=== PATIENT | female | born 1960 | race Caucasian/White ===

== ENCOUNTER 2020-03-23 19:08 | Emergency (ER) | payer OTHER, SELFPAY ==
[2020-03-23] VITALS (8 sets, daily range): BP systolic 143–187; BP diastolic 84–116; PULSE 74–120; RESP 14–18; TEMP 36.6; O2SAT 96–99; BMI 24.0
[2020-03-23 19:49] LABS: Basophils % 0.2 %; Eosinophils % 0.1 %; Hematocrit 40.3 % (37.0-47.0); Hemoglobin 13.4 g/dL (11.5-15.3); Lymphocytes # 1.9 10^3/uL (0.8-4.8); Lymphocytes % 11.2 %; Mean Corpuscular HGB Conc 33.3 g/dL (30.0-36.0); Mean Corpuscular Hemoglobin 36.2 pg (28.0-34.0); Mean Corpuscular Volume 108.9 fL (81-99); Mean Platelet Volume 9.3 fL (7.4-10.4); Monocytes # 0.9 10^3/uL (0.2-0.9); Monocytes % 5.4 %; Neutrophils # 13.7 10^3/uL (1.8-7.7); Neutrophils % 82.6 %; Nucleated Red Blood Cells % 0 %; Platelet Count 362 10^3/cmm (130-400); Red Cell Distribution Width 12.9 % (12.1-15.1); White Blood Count 16.5 10^3/uL (4.0-10.0)
[2020-03-23 20:06] LABS: Alanine Aminotransferase 24 U/L (0-33); Albumin Level 4.5 g/dL (3.5-5.2); Alkaline Phosphatase 45 IU/L (35-105); Anion Gap 24.9 (5-19); Aspartate Amino Transferase 42 U/L (0-32); Blood Urea Nitrogen 27 mg/dL (6-20); Carbon Dioxide 17 mmol/L (22-29); Chloride 102 mmol/L (98-107); Globulin 3.5 g/dL (1.3-4.6); Glomerular Filtration Rate 33.1 mL/min (90-130); Glucose 269 mg/dL (65-115); Osmolality Calculated 296 mOsm/kg (285-295); Potassium 3.9 mmol/L (3.5-5.1); Sodium 140 mmol/L (136-145); Total Bilirubin 0.5 mg/dL (0.15-1.2)
[2020-03-23 20:07] LABS: HCG, Serum Qual Negative (Negative)
[2020-03-23] MEDS: ondansetron 2 mg/ML SDV 2 mL 4 MG IVP ×2 (20:10→20:57)
[2020-03-23] MEDS: sodium chloride 0.9% 1,000 ML 999 ML IV ×3 (20:11→22:19)
[2020-03-23 20:22] LABS: Calcium 13.9 mg/dL (8.5-10.5)
--- NOTE | 2020-03-23 20:23 | PC.NURSE ---
Lab called with critical CA+ value of 13.9, notified.
--- NOTE | 2020-03-23 20:45 | XR_ITS ---
WS: [id number] XR chest 1V portable [id number] REASON FOR EXAM: cough FINDINGS: The heart and mediastinal interfaces normal. The lung diggs are well aerated. No pneumonia, pleural effusion, pulmonary edema, or pneumothorax. The hilum and apices normal. No osseous abnormalities. XR/XR chest 1V portable [id number] IMPRESSION: Negative chest for acute pathology.
--- NOTE | 2020-03-23 20:45 | CTR_ITS ---
PROCEDURE INFORMATION: Exam: CT Abdomen And Pelvis With Contrast Exam date and time: 03/23/2020 8:51 PM Age: 60 years old Clinical indication: Abdominal pain; Generalized; Prior surgery; Surgery date: 6+ months; Surgery type: ; Patient HX: Umbilical and luq pain new onset today; N/v/d TECHNIQUE: Imaging protocol: Computed tomography of the abdomen and pelvis with intravenous contrast. Radiation optimization: All CT scans at this facility use at least one of these dose optimization techniques: automated exposure control; mA and/or kV adjustment per patient size (includes targeted exams where dose is matched to clinical indication); or iterative reconstruction. Contrast material: VISIPAQUE; Contrast volume: 95 ml; Contrast route: IV; COMPARISON: No relevant prior studies available. RADIATION DOSE METRICS: Total DLP: 541.59 mGy-cm FINDINGS: Heart: Mild cardiac enlargement. Lungs: subsegmental atelectasis in the lung bases. Liver: There is diffuse low-attenuation of the liver relative to the spleen consistent with fatty infiltration. Gallbladder and bile ducts: The gallbladder is markedly edematous and the mucosa is hyper enhancing. The lumen is incompletely distended. There is a calcified stone in the lumen. There is no biliary dilation. Pancreas: There is marked pancreatic and peripancreatic edema. There is patchy hypoenhancement of the pancreatic body and tail. No discrete fluid collection. No hematoma. Spleen: The spleen is unremarkable. Adrenals: The adrenal glands are unremarkable. Kidneys and ureters: Marked asymmetric atrophy of the left kidney. Unremarkable right kidney. No hydronephrosis or stones. Stomach and bowel: The small bowel is nondilated. There is no sign of inflammation. The colon is unremarkable. The stomach is unremarkable. Appendix: The appendix is normal. Intraperitoneal space: Small volume free fluid surrounding the pancreas, extending along the left pericolic gutter and into the pelvis. There is a small volume of perihepatic ascites. There is no intraperitoneal free air. Vasculature: There is severe aortic atherosclerotic disease. There is no aortic dissection or aneurysm. 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 The splenic and hepatic arteries are patent. Superior mesenteric artery is normal. The portal, splenic and superior mesenteric veins are patent. Lymph nodes: Unremarkable. No enlarged lymph nodes. Bladder: The urinary bladder is unremarkable. Reproductive: The uterus is unremarkable. There is no adnexal mass or large cyst. Bones/joints: There is moderate degenerative disease in the lumbar spine. The pelvis and hips are unremarkable. Soft tissues: The abdominal wall is intact. CT/CT abdomen pelvis w con* [id number] IMPRESSION: 1. Necrotizing pancreatitis. 2. Mild ascites. No discrete fluid collection. 3. Incidental findings above. Radiation Dose CTDIVOL = (mGy): DLP = 541.59 (mGy-cm)
--- NOTE | 2020-03-23 20:46 | ED_ITS ---
HPI - Abdominal Pain General: Chief Complaint: Abdominal Pain Stated Complaint: n/v/d Time Seen by Provider: 03/23/20 20:36 History of Present Illness: HPI narrative: Patient is a probable alcoholic who has been decrease in drinking over the last week and today she arrives with nausea and vomiting diarrhea x8 hours. Patient has history of constipation and will attempt to drink lots of water to try to get her bowels moving and she did that yesterday with no success can her bowels move she complains about coughing and generalized abdominal pain MD elicited complaint: abdominal pain Pertinent past history: constipation Onset (ago): hour(s) (8) Pain Consistency: constant Location: Diffuse Severity: severe Pain scale (0-10): 8 Quality: aching Exacerbating factors: movement Relieving factors: nothing Context: other (EtOH use) Associated Symptoms: Reports constipation, diarrhea, nausea and vomiting; Denies chills and fever(s) Review of Systems Const: Denies: fever(s), chills or body aches Eyes: Denies: change in vision or blurry vision ENMT: Denies: throat pain or nasal congestion Card: Denies: chest pain or dyspnea on exertion Resp: Denies: dyspnea, productive cough or non-productive cough GI: Reports: abdominal pain, nausea, vomiting, diarrhea and constipation Musc: Denies: extremity pain Skin/Breast: Denies: rash Neuro: Denies: headache(s) Psych: Denies: anxiety or depression Sarabjit/Lymph: Denies: easy bruising PFSH ED PFSH: Social History Smoking and tobacco status: former smoker Physical Exam Const: COMMON NORMALS: no acute distress, average body habitus and patient oriented x3 HENMT: COMMON NORMALS: normocephalic HEAD & SCALP: normal to inspection and normocephalic FACE & SINUS: normal facial exam Eye: COMMON NORMALS: conjunctivae normal GENERAL EYE: appearance normal, both eyes and all related structures CONJUNCTIVA: Yes conjunctivae normal Neck/C-Spine: COMMON NORMALS: no JVD Chest: COMMONS NORMALS: normal inspection of the chest Resp: COMMON NORMALS: normal respiratory effort and clear to auscultation bilaterally AUSCULTATION: clear to auscultation bilaterally Cardio: COMMON NORMALS: no JVD, regular rate and regular rhythm RATE: regular rate RHYTHM: regular rhythm GI: INSPECTION: Yes abdominal distension PALPATION: Yes Tenderness to palpation present (GI) PERCUSSION: dullness to percussion Extremity: COMMON NORMALS: normal to inspection and full ROM Neuro: COMMON NORMALS: patient oriented x3 Course Vital Signs: Vital signs: Vital Signs Temperature 97.8 F 03/23/20 19:51 Pulse Rate 115 H 03/23/20 22:00 Respiratory Rate 18 03/23/20 23:21 Blood Pressure 183/116 03/23/20 23:21 Pulse Oximetry 97 03/23/20 23:21 MDM - Abdominal Pain MDM Narrative: Medical decision making narrative: Consult to Dr. Howard about the case throughout . I spoke with Dr. Palmer and he said that person needs higher level of care than we are able to provide here I called [facility] which patient requested and Dr. Glass accepted patient on transfer Lab Data: Labs: Lab Results 03/23/20 03/23/20 03/23/20 Range/Units 19:35 19:35 19:35 WBC 16.5 H (4.0-10.0) 10^3/ uL RBC 3.70 L (4.1-5.3) 10^6/u L Hgb 13.4 (11.5-15.3) g/dL Hct 40.3 (37.0-47.0) % MCV 108.9 H (81-99) fL MCH 36.2 H (28.0-34.0) pg MCHC 33.3 (30.0-36.0) g/dL RDW 12.9 (12.1-15.1) % Plt Count 362 (130-400) 10^3/c mm MPV 9.3 (7.4-10.4) fL Neut % (Auto) 82.6 % Lymph % (Auto) 11.2 % [place] % (Auto) 5.4 % Eos % (Auto) 0.1 % Baso % (Auto) 0.2 % Neut # (Auto) 13.7 H (1.8-7.7) 10^3/u L Lymph # (Auto) 1.9 (0.8-4.8) 10^3/u L [place] # (Auto) 0.9 (0.2-0.9) 10^3/u L Eos # (Auto) 0.0 (0.0-0.8) 10^3/u L Baso # (Auto) 0.0 (0.0-0.1) 10^3/u L Nucleated RBC % (a uto) 0 % Nucleated RBCs # 0.0 /100WBC Sodium 140 (136-145) mmol/L Potassium 3.9 (3.5-5.1) mmol/L Chloride 102 (98-107) mmol/L Carbon Dioxide 17 L (22-29) mmol/L Anion Gap 24.9 H (5-19) BUN 27 H (6-20) mg/dL Creatinine 1.6 H (0.5-0.9) mg/dL GFR Calculation 33.1 L (90-130) mL/min Glucose 269 H (65-115) mg/dL Calculated Osmolal ity 296 H (285-295) mOsm/k g Calcium 13.9 H* (8.5-10.5) mg/dL Total Bilirubin 0.5 (0.15-1.2) mg/dL AST 42 H (0-32) U/L ALT 24 (0-33) U/L Alkaline Phosphata se 45 (35-105) IU/L Total Protein 8.0 (6.6-8.7) g/dL Albumin 4.5 (3.5-5.2) g/dL Globulin 3.5 (1.3-4.6) g/dL Lipase 5621 H (13-60) U/L HCG, Qual Negative (Negative) Urine Color (Yellow) Urine Appearance (CLEAR) Urine pH (5-7) Ur Specific Gravit y (1.005-1.030) Urine Protein (Negative) Urine Glucose (UA) (Normal) Urine Ketones (Negative) Urine Blood (Negative) Urine Nitrate (Negative) Urine Bilirubin (NEGATIVE) Urine Urobilinogen (Negative) mg/dL Ur Leukocyte Martina ase (Negative) Urine RBC (0-2) /hpf Urine WBC (0-5) /hpf Ur Squamous Epith Cells (0-5) Ur Transition Epit h Cell /hpf Urine Bacteria (NONE) Hyaline Casts Urine Mucus 03/23/20 Range/Units 22:25 WBC (4.0-10.0) 10^3/ uL RBC (4.1-5.3) 10^6/u L Hgb (11.5-15.3) g/dL Hct (37.0-47.0) % MCV (81-99) fL MCH (28.0-34.0) pg MCHC (30.0-36.0) g/dL RDW (12.1-15.1) % Plt Count (130-400) 10^3/c mm MPV (7.4-10.4) fL Neut % (Auto) % Lymph % (Auto) % [place] % (Auto) % Eos % (Auto) % Baso % (Auto) % Neut # (Auto) (1.8-7.7) 10^3/u L Lymph # (Auto) (0.8-4.8) 10^3/u L [place] # (Auto) (0.2-0.9) 10^3/u L Eos # (Auto) (0.0-0.8) 10^3/u L Baso # (Auto) (0.0-0.1) 10^3/u L Nucleated RBC % (a uto) % Nucleated RBCs # /100WBC Sodium (136-145) mmol/L Potassium (3.5-5.1) mmol/L Chloride (98-107) mmol/L Carbon Dioxide (22-29) mmol/L Anion Gap (5-19) BUN (6-20) mg/dL Creatinine (0.5-0.9) mg/dL GFR Calculation (90-130) mL/min Glucose (65-115) mg/dL Calculated Osmolal ity (285-295) mOsm/k g Calcium (8.5-10.5) mg/dL Total Bilirubin (0.15-1.2) mg/dL AST (0-32) U/L ALT (0-33) U/L Alkaline Phosphata se (35-105) IU/L Total Protein (6.6-8.7) g/dL Albumin (3.5-5.2) g/dL Globulin (1.3-4.6) g/dL Lipase (13-60) U/L HCG, Qual (Negative) Urine Color Yellow (Yellow) Urine Appearance Hazy A (CLEAR) Urine pH 5 (5-7) Ur Specific Gravit y 1.015 (1.005-1.030) Urine Protein 1+ H (Negative) Urine Glucose (UA) Norm (Normal) Urine Ketones Negative (Negative) Urine Blood 3+ H (Negative) Urine Nitrate Positive H (Negative) Urine Bilirubin Neg (NEGATIVE) Urine Urobilinogen Norm (Negative) mg/dL Ur Leukocyte Martina ase 2+ H (Negative) Urine RBC 25-40 H (0-2) /hpf Urine WBC >100 H (0-5) /hpf Ur Squamous Epith Cells 10-15 H (0-5) Ur Transition Epit h Cell 0-4 /hpf Urine Bacteria 4+ H (NONE) Hyaline Casts 10-15 H Urine Mucus 2+ EKG Data ^: EKG 1: EKG interpretation date: 03/23/20 EKG interpretation time: 21:10 Interpretation: Sinus tachycardia ventricular rate 107 bpm ID interval 159 ms QRS duration 96 ms Discharge Plan Discharge Patient Disposition: Xfer Other Clinical Impression: Acute necrotizing pancreatitis, Acute UTI Condition: Stable Coding Level of Care Code ED Rn Support Services for Chg Fwd Exam Comprehensive
--- NOTE | 2020-03-23 20:46 | ECG_ITS ---
Measurements Intervals [place] Rate: 107 P: 44 HI: 159 QRS: 61 QRSD: 96 T: 40 QT: 330 QTc: 442 SINUS TACHYCARDIA POSSIBLE LEFT ATRIAL ENLARGEMENT [-0.1mV P WAVE IN V1/V2] ABNORMAL RHYTHM ECG No previous ECG available for comparison Electronically Signed On 03-24-2020 19:36:40 CDT by Yazmin Ball M.D. [email or web address]
[2020-03-23] MEDS: morphine 4 mg/mL SDV 1 mL IVP ×2 (20:57→22:14)
[2020-03-23] MEDS: iodixanol 320 mg/mL 100mL Btl IV (21:55)
[2020-03-23 22:18] LABS: Lipase 5621 U/L (13-60)
[2020-03-23 22:35] LABS: Glucose Urine UA Norm (Normal); Protein Urine 1+ (Negative); Specific Gravity, Urine 1.015 (1.005-1.030); Urine Appearance Hazy (CLEAR); Urine Color Yellow (Yellow); pH Urine 5 (5-7)
[2020-03-23 22:36] LABS: Bilirubin Urine Neg (NEGATIVE); Blood Urine 3+ (Negative); Ketones Urine Negative (Negative); Leukocyte Esterase Urine 2+ (Negative); Nitrate Urine Positive (Negative); Urobilinogen Urine Norm (Negative)
[2020-03-23 22:40] LABS: RBC Urine 25-40 /hpf (0-2)
[2020-03-23 22:41] LABS: Add Urine Culture? No; Bacteria Urine 4+; Mucus Urine 2+; Transitional Epi Cells Urine 0-4 /hpf; WBC Urine >100 /hpf (0-5)
[2020-03-23] MEDS: HYDROmorphone 1 mg/mL INJ 1 mL IVP (23:16)
[2020-03-23] MEDS: cefTRIAXone 1,000 MG in sodium chloride 0.9% (plus) 50 ML 100 MG IV (23:28)
--- NOTE | 2020-03-23 23:41 | PC.NURSE ---
TRANSFER SCREEN DONE WITH ADMISSIONS AT [facility] IN [place].
--- NOTE | 2020-03-24 00:42 | PC.NURSE ---
notified Ken Alfaro NP of elevated HR and BP. advised to check patient pain scale and verbal order for dilaudid 1 mg IVP now.
[2020-03-24 00:43] VITALS: RESP 16
[2020-03-24] MEDS: HYDROmorphone 1 mg/mL INJ 1 mL IVP (00:43)
[2020-03-24 00:44] VITALS: BP 190/119; PULSE 129; RESP 16; O2SAT 95
== END 2020-03-24 00:46 | disposition other institution (70) ==
PROVIDERS: Emergency Medicine; Emergency Provider Nurse Practitioner Family
DX: K85.91 Acute pancreatitis with uninfected necrosis, unspecified (principal); N39.0 Urinary tract infection, site not specified; Z87.891 Personal history of nicotine dependence
CPT/HCPCS: 12345; 36415; 71045; 74177; 80053; 81001; 83690; 84703; 85025; 93005; 96361; 96365; 96374; 96375; 96376; 99283; 99284; J0696; J1170; J2270; J2405; J7030; Q9967

== ENCOUNTER 2025-04-29 12:04 | Inpatient (IN) | payer MEDICARE, OTHER, SELFPAY ==
[2025-04-29] VITALS (14 sets, daily range): BP systolic 76–160; BP diastolic 47–84; PULSE 65–105; RESP 12–17; TEMP 36.7–36.8; O2SAT 93–100; BMI 23.1
--- NOTE | 2025-04-29 12:07 | ECG_ITS ---
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 Measurements Intervals [place] Rate: 73 P: 63 NH: 158 QRS: 75 QRSD: 90 T: 54 QT: 379 QTc: 418 Interpretive Statements SINUS RHYTHM LOW QRS VOLTAGE IN PRECORDIAL LEADS [QRS DEFLECTION < 1.0 mV IN CHEST LEADS] Compared to ECG 03/23/2020 21:10:49 Low QRS voltage now present Sinus tachycardia no longer present Electronically Signed On 04-29-2025 17:15:36 CDT by Brant Oneill M.D. [email or web address]
--- NOTE | 2025-04-29 12:07 | XR_ITS ---
WS: [id number] Exam: XR chest 1V portable [id number] Date/Time of Exam: 04/29/2025 12:25 PM Reason For Exam: weakness Comparison 03/23/2020. Lungs are fully inflated and clear. Normal cardiomediastinal silhouette and bony structures. No pleural effusion. Fusion hardware in the lower C-spine. XR/XR chest 1V portable [id number] IMPRESSION: 1. No acute cardiopulmonary finding.
--- OUTSIDE RECORDS SUMMARY | 2025-04-29 12:16 | XMS_ITS | Encounter Summary ---
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
--- OUTSIDE RECORDS SUMMARY | 2025-04-29 12:16 | XMS_ITS | Clinical Summary ---
Author Organization [facility] Address [address] [facility] Attn: [place] [address] Care Team Providers Care Property Utilization Manager Name Role Phone Unavailable Primary Care Provider Unavailabl e Allergies No known active allergies Medications magnesium hydroxide (MILK OF MAGNESIA) 400 mg/5 mL suspension Take 30 mL by mouth 1 time daily as needed for Constipatio n. 03/30/2020 Active potassium chloride (KLOR-CON) 20 mEq Extended Release tablet Take 1 Tablet (20 mEq) by mouth daily. 30 Tablet 1 03/30/2020 Active Active Problems Problem Noted Date Diagnosed Date Alcohol-induced acute pancreatitis with uninfect ed necrosis 03/28/2020 Moderate protein-calorie malnutrition 03/25/2020 KESHA (acute kidney injury) 03/24/2020 Sinus tachycardia 03/24/2020 Acute necrotizing pancreatitis 03/24/2020 Hypercalcemia 03/24/2020 CKD (chronic kidney disease) stage 3, GFR 30-59 ml/min 03/24/2020 Hypomagnesemia 03/24/2020 Alcohol dependence 03/24/2020 Acute cystitis without hematuria 03/24/2020 Encounters Date Type Department Care Team Description 03/18/2025 External Device Data ST[facility] ABSTRACTION Provider, Abstract 03/11/2025 External Device Data ST[facility] ABSTRACTION Provider, Abstract from Last 3 Months Social History Tobacco Use Types Packs/Day Years Used Date Smoking Tobacco: Former Smokeless Tobacco: Never Alcohol Use Standard Drinks/Week Comments Yes 0 (1 standard drink = 0.6 oz pur e alcohol) Comments Unknown Sex and Gender Information Value Date Recorded Sex Assigned at Not on file Legal Sex Female 6:28 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 Gender Identity Not on file Sexual Orientation Not on file Last Filed Vital Signs Vital Sign Reading Time Taken Comments Blood Pressure 116/66 03/30/2020 8:00 AM CDT Pulse 92 03/30/2020 8:00 AM CDT Temperature 37 C (98.6 F) 03/30/2020 8:00 AM CDT Respiratory Rate 16 03/30/2020 8:00 AM CDT Oxygen Saturation - - Inhaled Oxygen Concentration - - Weight 75.4 kg (166 lb 4.8 oz) 03/29/2020 6:21 A M CDT Height 162.6 cm (5' 4 ) 03/27/2020 7:30 AM CDT Body Mass Index 28.55 03/27/2020 7:30 AM CDT Plan of Treatment Health Maintenance Due Date Last Done Comments DTAP/TDAP/TD VACCINES (1 - Tdap) 1981 HPV/Cotest (21-29) 1983 CERVICAL CANCER SCREENING 02/19/1992 HPV/Cotest (30-65) 02/19/1992 PAP SMEAR 02/19/1992 BREAST CANCER SCREENING 2002 COLORECTAL SCREENING 2007 Colorectal Cancer Screening 2007 FIT-DNA Q 3 years 2007 FIT/FOBT Q 1 year 2007 Flex Sig/CT Colonography Q 5 years 2007 ZOSTER VACCINE (1 of 2) 02/19/2012 RSV VACCINE (60+ or ) (1 - Risk 60-74 years 1-dose series) 2022 INFLUENZA VACCINE (#1) 2025 Insurance [facility]
--- OUTSIDE RECORDS SUMMARY | 2025-04-29 12:16 | XMS_ITS | Encounter Summary ---
Author Organization [facility] Address [address] [place] [address] Care Team Providers Care Handle Maker Name Role Phone Unavailable Primary Care Provider Unavailabl e Encounter Details Date Type Department Care Team (Latest Contact Info) Description 04/03/2002 Outpatient Historical [address] [phone] Enrico Bejarano MD [address] [address] ACUTE FRONTAL SINUSITIS (Primary Dx); LUMBAGO; UNS ASTHMA WOSTATUS ASTHMATICUS Social History Tobacco Use Types Packs/Day Years Used Date Smoking Tobacco: Never Assessed Comments Unknown Sex and Gender Information Value Date Recorded Sex Assigned at Not on file 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
--- OUTSIDE RECORDS SUMMARY | 2025-04-29 12:16 | XMS_ITS | Clinical Summary ---
Author Organization [facility] Address [address] [place] [address] Care Team Providers Care Garden Implement Mechanic Name Role Phone Unavailable Primary Care Provider [...] ed necrosis 03/28/2020 Moderate protein-calorie malnutrition 03/25/2020 Acute necrotizing pancreatitis 03/24/2020 Sinus tachycardia 03/24/2020 KESHA (acute kidney injury) 03/24/2020 Hypercalcemia 03/24/2020 CKD (chronic kidney disease) stage 3, GFR 30-59 ml/min 03/24/2020 Hypomagnesemia 03/24/2020 Alcohol dependence 03/24/2020 Acute cystitis without hematuria 03/24/2020 Social History Tobacco Use Types Packs/Day Years Used Date Smoking Tobacco: Former Smokeless Tobacco: Never Alcohol Use Standard Drinks/Week Comments Yes 0 (1 standard drink = 0.6 oz pur e alcohol) pint of vodka daily Comments No Sex and Gender Information Value Date Recorded Sex Assigned at Not on file 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 Gender Identity Not on file Sexual Orientation Not on file Last Filed Vital Signs Vital Sign Reading Time Taken Comments Blood Pressure 116/66 03/30/2020 8:00 AM CDT Pulse 92 03/30/2020 8:00 AM CDT Temperature 37 C (98.6 F) 03/30/2020 8:00 AM CDT Respiratory Rate 16 03/30/2020 8:00 AM CDT Oxygen Saturation 96% 03/30/2020 8:00 AM CDT Inhaled Oxygen Concentration - - Weight 75.4 [...] series) 2022 INFLUENZA VACCINE (#1) [address] [place] [place] [address] Advance Directives For more information, please contact: [phone] * Full Code (Latest Code Status on File) Date Activated Date Inactivated Comments 03/24/2020 2:36 PM 03/30/2020 2:50 PM
--- OUTSIDE RECORDS SUMMARY | 2025-04-29 12:16 | XMS_ITS | Encounter Summary ---
Author Organization [facility] Address [address] [place] [address] Care Team Providers Care Assistant Prosecuting Attorney Name Role Phone Unavailable Primary Care Provider Unavailabl e Encounter Details Date Type Department Care Team (Latest Contact Info) Description 08/08/2003 Outpatient Historical [address] [phone] Teetee Walls MD [address] [place] [address], [address] ALLERGY, UNSPECIFIED (Primary Dx) Social History Tobacco Use Types Packs/Day Years Used Date Smoking Tobacco: Never Assessed Comments Unknown Sex and Gender Information Value Date Recorded Sex Assigned at Not on file 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
--- NOTE | 2025-04-29 12:37 | CTR_ITS ---
PROCEDURE INFORMATION: Exam: CT Head Without Contrast Exam date and time: 04/29/2025 1:50 PM Age: 65 years old Clinical indication: Injury or trauma; Blunt trauma (contusions or hematomas); Injury details: --fall x yesterday. Vomiting, weakness, loss of appeteite, chronic kidney disease TECHNIQUE: Imaging protocol: Computed tomography of the head without contrast. Radiation optimization: All CT scans at this facility use at least one of these dose optimization techniques: automated exposure control; mA and/or kV adjustment per patient size (includes targeted exams where dose is matched to clinical indication); or iterative reconstruction. COMPARISON: No relevant prior studies available. RADIATION DOSE METRICS: Total DLP (mGy-cm): 1161.64 FINDINGS: Brain: Mild intracranial vascular calcifications are seen affecting the left vertebral and parasellar internal carotid arteries. Cerebral ventricles: No ventriculomegaly. Paranasal sinuses: Some retained secretions are demonstrated within the non dominant right sphenoid sinus. Mastoid air cells: Visualized mastoid air cells are well aerated. Bones: See Brain finding. Soft tissues: Unremarkable. CT/CT head wo con* [id number] IMPRESSION: 1. No sequela of acute trauma is identified. 2. Mild intracranial atherosclerotic changes. 3. Mild inflammatory changes/retained secretions, right sphenoid sinus.
--- NOTE | 2025-04-29 12:37 | CT_ITS ---
WS: [id number] Exam: CT abdomen pelvis con [id number] Date/Time of Exam: 04/29/2025 1:43 PM Reason For Exam: vomiting DLP: 359.[address] scans at [facility] use at least one of these dose optimization techniques: automated exposure control; mA and/or kV adjustment per patient size (includes targeted exams where dose is matched to clinical indication); or iterative reconstruction. Lower lung zones are clear. Fatty liver noted. Single 7 mm stone noted in the gallbladder. No sign of acute cholecystitis. Severe atrophy of the LEFT kidney. Compensatory hypertrophy of the RIGHT kidney. There is some fat stranding about the RIGHT kidney that might indicate pyelonephritis. No obstruction of the RIGHT kidney. The abdominal aorta is normal in caliber. The stomach and spleen are unremarkable. The pancreas is atrophic. No adrenal masses. Small bowel loops are not dilated. Soft tissue mass with associated calcifications seen just lateral to the LEFT kidney appears to represent an area of fat necrosis secondary to prior acute pancreatitis with LEFT retroperitoneal involvement. Extensive atherosclerotic plaquing of the abdominal aorta and visualized major branches as well as the iliac bifurcation. No mass in the pelvis. No lymphadenopathy. Normal appendix visualized. No significant large bowel abnormality noted. The uterus is atrophic. There is air in the cervix and the urinary bladder. Etiology unclear. Extensive atherosclerotic plaquing of the common femoral arteries. Spinal canal stenosis at the L4-5 level secondary to posterior disc protrusion osteophyte complex. CT/CT abdomen pelvis con [id number] IMPRESSION: 1. Hepatic steatosis. Single small stone in the gallbladder but no sign of acut e cholecystitis. 2. Perinephric stranding about the RIGHT kidney which might be seen with pyelon ephritis. 3. Severe atrophy of the LEFT kidney with compensatory hypertrophy of the RIGHT kidney. 4. Ovoid soft tissue mass in the LEFT retroperitoneal area with calcifications suggesting fat necrosis and sequela from previous acute pancreatitis 5. Extensive atherosclerotic vascular disease of the aorta and major branches a s well as the major arteries in the pelvis. 5. Small amount of air in the urinary bladder and in the cervix. Etiology uncer tain.
--- NOTE | 2025-04-29 12:37 | W.ED.WEAKNES ---
HPI - Weakness General: Chief complaint: Weakness Stated complaint: weakness, multiple falls, dizzy, trouble hearing Time Seen by Provider: 04/29/25 12:22 Source: patient Mode of arrival: ambulatory Limitations: no limitations History of Present Illness: 65-year-old female states she has been having increasing weakness for the last 2 to 3 weeks. She states she has not felt well she has had no vomiting she has had frequent falls. States she did have a fall yesterday some abrasions to her left arm and did hit her head denies any loss of consciousness. Patient is hypotensive here in triage. She denies any recent cough or fevers. Associated symptoms: Reports nausea and vomiting; Denies chest pain, chills, fever(s) or headache(s) Related Data Home Medications ?Medication ?Instructions ?Recorded ?Confirmed Zantac 150 mg PO DAILY PRN UNKNOWN 03/23/20 03/23/20 amlodipine 5 mg-benazepril 20 mg 2 cap PO BEDTIME 03/23/20 03/23/20 capsule cetirizine 10 mg tablet (Zyrtec) 10 mg PO DAILY 03/23/20 03/23/20 diclofenac sodium 1 % topical gel See Rx Instructions .Route .COMPLEX 03/23/20 03/23/20 ergocalciferol (vitamin D2) 1,250 50,000 unit PO Q7D 03/23/20 03/23/20 mcg (50,000 unit) capsule ibuprofen 200 mg tablet 200 - 800 mg PO PRN 03/23/20 03/23/20 lidocaine 5 % topical patch See Rx Instructions .Route .COMPLEX 03/23/20 03/23/20 Allergies Allergy/AdvReac Type Severity Reaction Status Date / Time No Known Allergies Allergy Verified 04/29/25 12:19 Review of Systems Const: Reports: fatigue and malaise; Denies: fever(s), chills, body aches or change in appetite Eyes: Denies: blurry vision or eye discomfort ENMT: Denies: throat pain or dental pain Card: Denies: chest pain Resp: Denies: dyspnea GI: Reports: nausea and vomiting; Denies: abdominal pain or diarrhea Musc: Denies: neck pain or back pain Skin/Breast: Denies: rash Neuro: Denies: headache(s) PFSH ED PFSH: Social History Smoking and tobacco/nicotine status: former use of tobacco/nicotine Physical Exam Const: COMMON NORMALS: patient oriented x3 GENERAL APPEARANCE: ill appearing HENMT: COMMON NORMALS: normocephalic and atraumatic HEAD & SCALP: normocephalic and atraumatic Eye: COMMON NORMALS: conjunctivae normal CONJUNCTIVA: Yes conjunctivae normal Neck/C-Spine: COMMON NORMALS: full ROM and supple Chest: COMMONS NORMALS: normal inspection of the chest and normal palpation of entire chest wall Resp: COMMON NORMALS: normal respiratory effort, No retractions, No use of accessory muscles and clear to auscultation bilaterally AUSCULTATION: clear to auscultation bilaterally Cardio: COMMON NORMALS: regular rate, regular rhythm and No murmurs present (Cardio) RATE: regular rate RHYTHM: regular rhythm GI: COMMON NORMALS: Normal to inspection, nondistended, normoactive bowel sounds present, Soft to palpation, non-tender and no masses PALPATION: Yes Soft to palpation Extremity: COMMON NORMALS: full ROM NARRATIVE EXTREMITY EXAM: Abrasions noted to left arm Neuro: COMMON NORMALS: patient oriented x3, moves all extremities and no focal motor deficits Psych: COMMON NORMALS: mental status grossly normal, Normal thought process present and cooperative THOUGHT PROCESS: Normal thought process present Skin: COMMON NORMALS: no rashes or lesions noted GENERAL SKIN EXAM: no rashes or lesions noted Course Vital Signs: Vital signs: Vital Signs Temperature 98.0 F 04/29/25 12:09 Pulse Rate 68 04/29/25 15:00 Respiratory Rate 15 04/29/25 15:00 Blood Pressure 112/61 04/29/25 15:00 Pulse Oximetry 100 04/29/25 15:00 Oxygen Delivery Me thod Room Air 04/29/25 14:30 MDM - Weakness Medical Decision Making Patient presents here with general weakness, multiple falls she does have a UTI likely causing her weakness she has been well-appearing here blood pressure improved after fluids did give her IV antibiotics and will admit Medical Records I reviewed the patient's medical records. Lab Data I reviewed the patient's lab results. 04/29/25 12:45 04/29/25 12:45 Radiology Impressions Chest X-Ray 04/29/25 12:07 IMPRESSION: 1. No acute cardiopulmonary finding. Abdomen/Pelvis CT 04/29/25 12:37 IMPRESSION: 1. Hepatic steatosis. Single small stone in the gallbladder but no sign of acute cholecystitis. 2. Perinephric stranding about the RIGHT kidney which might be seen with pyelonephritis. 3. Severe atrophy of the LEFT kidney with compensatory hypertrophy of the RIGHT kidney. 4. Ovoid soft tissue mass in the LEFT retroperitoneal area with calcifications suggesting fat necrosis and sequela from previous acute pancreatitis 5. Extensive atherosclerotic vascular disease of the aorta and major branches as well as the major arteries in the pelvis. 5. Small amount of air in the urinary bladder and in the cervix. Etiology uncertain. Head CT 04/29/25 12:37 IMPRESSION: 1. No sequela of acute trauma is identified. 2. Mild intracranial atherosclerotic changes. 3. Mild inflammatory changes/retained secretions, right sphenoid sinus. Laboratory Results WBC 7.82 10^3/uL (3.29-11.43) 04/29/25 12:45 RBC 2.23 10^6/uL (3.85-5.65) L 04/29/25 12:45 Hgb 8.20 g/dL (11.27-16.99) L 04/29/25 12:45 Hct 24.1 % (36-47) L 04/29/25 12:45 MCV 108.1 fl (85-98) H 04/29/25 12:45 MCH 36.8 pg (27-33) H 04/29/25 12:45 MCHC 34.0 g/dL (30-55) 04/29/25 12:45 RDW 13.9 % (12.1-15.1) 04/29/25 12:45 Plt Count 170 10^3/cmm (157-399) 04/29/25 12:45 MPV 8.8 fL (7.4-10.4) 04/29/25 12:45 Neut % (Auto) 72.9 % 04/29/25 12:45 Lymph % (Auto) 16.1 % 04/29/25 12:45 [place] % (Auto) 9.2 % 04/29/25 12:45 Eos % (Auto) 0.5 % 04/29/25 12:45 Baso % (Auto) 0.5 % 04/29/25 12:45 Neut # (Auto) 5.70 10^3/uL (1.8-7.7) 04/29/25 12:45 Lymph # (Auto) 1.3 10^3/uL (0.8-4.8) 04/29/25 12:45 [place] # (Auto) 0.7 10^3/uL (0.2-0.9) 04/29/25 12:45 Eos # (Auto) 0.0 10^3/uL (0.0-0.8) 04/29/25 12:45 Baso # (Auto) 0.0 10^3/uL (0.0-0.1) 04/29/25 12:45 Nucleated RBC % (auto) 0 % 04/29/25 12:45 Nucleated RBCs # 0.0 /100WBC 04/29/25 12:45 PT 12.90 SECONDS (12.1-14.9) 04/29/25 12:45 INR 0.91 (0.8-1.2) 04/29/25 12:45 Sodium 128 mmol/L (136-145) L 04/29/25 12:45 Potassium 3.8 mmol/L (3.5-5.1) 04/29/25 12:45 Chloride 85 mmol/L (98-107) L 04/29/25 12:45 Carbon Dioxide 22 mmol/L (22-29) 04/29/25 12:45 Anion Gap 24.8 (5-19) H 04/29/25 12:45 BUN 27 mg/dL (8-23) H 04/29/25 12:45 Creatinine 1.5 mg/dL (0.5-0.9) H 04/29/25 12:45 GFR Calculation 35.1 mL/min (90-130) L 04/29/25 12:45 Glucose 130 mg/dL (65-115) H 04/29/25 12:45 Calculated Osmolality 273 mOsm/kg (285-295) L 04/29/25 12:45 Lactic Acid 1.7 mmol/L (0.5-2.2) 04/29/25 12:45 Calcium 9.8 mg/dL (8.5-10.5) 04/29/25 12:45 Total Bilirubin 0.7 mg/dL (0.15-1.2) 04/29/25 12:45 AST 35 U/L (0-32) H 04/29/25 12:45 ALT 23 U/L (0-33) 04/29/25 12:45 Alkaline Phosphatase 65 U/L (35-105) 04/29/25 12:45 Total Protein 7.1 g/dL (6.6-8.7) 04/29/25 12:45 Albumin 4.1 g/dL (3.5-5.2) 04/29/25 12:45 Globulin 3.0 g/dL (1.3-4.6) 04/29/25 12:45 Lipase 106 U/L (13-60) H 04/29/25 12:45 TSH 0.86 uIU/mL (0.27-4.20) 04/29/25 12:45 Urine Color Yellow (Yellow) 04/29/25 14:46 Urine Appearance Turbid (CLEAR) A 04/29/25 14:46 Urine pH 7.0 (5-7) 04/29/25 14:46 Ur Specific [place] 1.005 (1.005-1.030) 04/29/25 14:46 Urine Protein 1+ (Negative) A 04/29/25 14:46 Urine Glucose (UA) Negative (Normal) 04/29/25 14:46 Urine Ketones Trace (Negative) 04/29/25 14:46 Urine Blood 2+ (Negative) A 04/29/25 14:46 Urine Nitrate Negative (Negative) 04/29/25 14:46 Urine Bilirubin Negative (Negative) 04/29/25 14:46 Urine Urobilinogen 1.0 mg/dL (Negative) 04/29/25 14:46 Ur Leukocyte Esterase 3+ (Negative) A 04/29/25 14:46 Urine RBC 0-2 /hpf (0-2) 04/29/25 14:46 Urine WBC 51-100 /hpf (0-5) H 04/29/25 14:46 Ur Squamous Epith Cells 0-5 /hpf (0-5) 04/29/25 14:46 Amorphous Sediment Not Reportable 04/29/25 14:46 Urine Bacteria Exceeds /hpf (NONE) 04/29/25 14:46 Hyaline Casts 24.82 /lpf 04/29/25 14:46 All radiology interpretation(s) finalized by discharge Discharge Plan Discharge Patient Disposition: Admitted As Inpatient Clinical Impression: Acute cystitis, Weakness Condition: Stable Coding Level of Care Code ED Viscose Cellar Charge Hand for Leslie Sparrow
[2025-04-29 13:08] LABS: Hematocrit 24.1 % (36-47); Hemoglobin 8.20 g/dL (11.27-16.99); Mean Corpuscular HGB Conc 34.0 g/dL (30-55); Mean Corpuscular Hemoglobin 36.8 pg (27-33); Mean Corpuscular Volume 108.1 fl (85-98); Nucleated Red Blood Cells % 0 %; Platelet Count 170 10^3/cmm (157-399); Red Blood Count 2.23 10^6/uL (3.85-5.65); White Blood Count 7.82 10^3/uL (3.29-11.43)
[2025-04-29 13:26] LABS: INR 0.91 (0.8-1.2); Prothrombin Time 12.90 SECONDS (12.1-14.9)
[2025-04-29 13:30] LABS: Lactic Sepsis W/Reflex 1.7 mmol/L (0.5-2.2)
[2025-04-29 13:36] LABS: Alanine Aminotransferase 23 U/L (0-33); Albumin Level 4.1 g/dL (3.5-5.2); Alkaline Phosphatase 65 U/L (35-105); Anion Gap 24.8 (5-19); Aspartate Amino Transferase 35 U/L (0-32); Blood Urea Nitrogen 27 mg/dL (8-23); Calcium 9.8 mg/dL (8.5-10.5); Carbon Dioxide 22 mmol/L (22-29); Chloride 85 mmol/L (98-107); Creatinine Clr Calc Pharmacy 34.7333; Globulin 3.0 g/dL (1.3-4.6); Glucose 130 mg/dL (65-115); Lipase 106 U/L (13-60); Osmolality Calculated 273 mOsm/kg (285-295); Potassium 3.8 mmol/L (3.5-5.1); Sodium 128 mmol/L (136-145); Thyroid Stimulating Hormone 0.86 uIU/mL (0.27-4.20); Total Protein 7.1 g/dL (6.6-8.7)
--- NOTE | 2025-04-29 14:05 | PC.NURSE ---
this nurse went into patients room multiple times to try and see if patient can provide an urine sample. pt states I will not, I do not have to go. made aware.
[2025-04-29 15:13] LABS: Glucose Urine UA Negative (Normal); Nitrate Urine Negative (Negative); Specific Gravity, Urine 1.005 (1.005-1.030)
[2025-04-29 15:19] LABS: Add Urine Microscopic? YES
[2025-04-29 15:32] LABS: UA Slide Review UA Slide Review Perf
[2025-04-29] MEDS: cefTRIAXone 1,000 mg SDV 1000 MG IVP (15:40)
[2025-04-29] MEDS: ondansetron 2 mg/ML SDV 2 mL 4 MG IVP (18:29)
--- NOTE | 2025-04-29 18:46 | PM.HP ---
Providers/Chief Complaint Admitting Physician: David Moon MD Chief Complaint: weakness, multiple falls, dizzy, trouble hearing History of Present Illness Audrey Cruz is a 65 year old female history of diabetes and chronic diarrhea. She comes in with recurrent falls and weakness. She states this has been going on for 2 to 3 weeks but diarrhea for a month 4-5 times a day. She does not see blood in the stool. Stool is baby yellow she has vomited but no blood . Patient reports a history of pancreatitis and gallstones around 2019 she states she was given morphine and she passed a gallstone. They considered removal of the gallbladder but surgeon declined. She had a CT scan in 2019 showed necrotizing pancreatitis. Looks like she was sent to Dr. Glass at [facility] Patient has a history of atrophied left kidney she states this started in her 20s and she was told that maybe the kidney lost its blood flow. There was marked asymmetric smaller kidney on the left side in 2019 and right kidney was unremarkable. Today's CT scan shows severe atrophy of the left kidney and compensatory hypertrophy of the right kidney there is ovoid soft tissue mass in the left retroperitoneal area with calcification suggesting fat necrosis and sequela from past acute pancreatitis. She has extensive atherosclerotic vascular disease in the aorta and major branches as well as the major arteries in the pelvis. There was a small amount of urinary bladder air and right kidney perinephric stranding consistent with pyelonephritis Review of Systems Narrative: General Positive for weight loss maybe 20 pounds she think she is 135 now and highest was 160 in her life. She does not report fevers. Cardiovascular she was hypotensive in the ER. She denies chest pain palpitations leg swelling Respiratory no cough wheezing shortness of breath GI positive for nausea vomiting diarrhea. She states 20% of the time she eats and gets nauseated. This results in her eating only 1 meal a day. She has never had a HIDA scan but she thinks she has had a gallbladder ultrasound. She states that eating sweets causes her to be nauseated. Alcohol does not necessarily cause nausea. She avoids English fries due to high potassium. She has been told by manager combination avoid potassium. Patient states she has had a colonoscopy about 8 years ago but never had an EGD positive for atrophied left kidney and renal insufficiency. She has had decreased urinary output recently with dehydration. 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 no vaginal bleeding or discharge no history of uterine hemorrhage Hematologic denies bleeding other than occasionally in urine Neuro no seizures or strokes Medications/Allergies Home Medications ?Medication ?Instructions ?Recorded ?Confirmed ?Last Taken ?Type Zantac 150 mg PO DAILY PRN UNKNOWN 03/23/20 03/23/20 03/23/20 History amlodipine 5 mg-benazepril 20 mg 2 cap PO BEDTIME 03/23/20 03/23/20 03/22/20 History capsule cetirizine 10 mg tablet (Zyrtec) 10 mg PO DAILY 03/23/20 03/23/20 Unknown History diclofenac sodium 1 % topical gel See Rx Instructions .Route .COMPLEX 03/23/20 03/23/20 Unknown History ergocalciferol (vitamin D2) 1,250 50,000 unit PO Q7D 03/23/20 03/23/20 Unknown History mcg (50,000 unit) capsule ibuprofen 200 mg tablet 200 - 800 mg PO PRN 03/23/20 03/23/20 Unknown History lidocaine 5 % topical patch See Rx Instructions .Route .COMPLEX 03/23/20 03/23/20 Unknown History Allergies Allergy/AdvReac Type Severity Reaction Status Date / Time No Known Allergies Allergy Verified 04/29/25 12:19 PFSH Acute PFSH: Medical History (Updated 04/29/25 @ 18:58 by David Moon MD) CKD (chronic kidney disease) Alcoholism Gallstone Social History (Updated 04/29/25 @ 18:55 by David Moon MD) Smoking and tobacco/nicotine status: former use of tobacco/nicotine Quit status (tobacco/nicotine): has quit using Year quit tobacco: 2017 roughly Alcohol intake: current Alcohol type: wine Alcohol use comment: 2 bottles of wine a week Substance/Drug Use: never Additional social history: Patient wants full code but no prolonged life support as discussed with David Moon MD on 04/29/2025 Vitals/I&O/Wt Last Vital Signs Temp 98.0 F 04/29/25 12:09 Pulse 105 H 04/29/25 18:00 Resp 14 04/29/25 18:00 BP 131/61 04/29/25 18:00 Pulse Ox 99 04/29/25 18:00 O2 Del Method Room Air 04/29/25 15:30 04/29/25 04/29/2504/29/25 06:59 14:59 22:59 Intake Total 183.05 / 1837.05 Balance 1836.05 / 183.05 Weight last 48 hrs Weight 61.235 kg Physical Exam Narrative: General well-developed malaised thin female in no acute cardiopulmonary distress but obviously nauseated and malaised. CV regular rate and rhythm Lungs clear to auscultation bilaterally Abdomen positive bowel sounds transient right upper quadrant and epigastric pain but this was not repeatedly reproducible. No obvious mass. No rebound tenderness Calves no tenderness cords pretibial edema Mentation she is alert and oriented x 3 Mood and affect are normal Skin is warm and dry not jaundiced Pupils equally round and reactive light accommodation she moves all extremities symmetrically Speech is clear orals Mallampati 2-3 Data 04/29/25 12:45 04/29/25 12:45 Micro: Microbiology 04/29/25 12:48 Blood Culture - Preliminary Blood SPECIMEN COLLECTED 04/29/25 12:45 Blood Culture - Preliminary Blood SPECIMEN COLLECTED A&P Assessment and plan 1. Acute cystitis: Patient with urine loaded with bacteria and white cells but not much blood. Will treat with Rocephin already started in ER. 2. Pyelonephritis: Patient with some right sided discomfort and pyelonephritis by CT scan. 3. Chronic pancreatitis: Chronic pancreatitis by CT scan and history. Sounds like she has had possibly also a sick chronically sick gallbladder. Will obtain a HIDA scan clear liquid diet antiemetics and IV fluids 4. Gallstone: See above 5. Alcoholism: Patient is counseled that she needs to quit drinking alcohol. She denies history of withdrawal 6. Hyponatremia: Saline repeat labs in the morning 7. CKD (chronic kidney disease): Saline repeat labs in the morning PDMP PDMP Reviewed: Not Reviewed Attestations Medical Necessity Statement*: Patient admitted the hospital with acute pyelonephritis and pancreatitis and require greater than 2 midnights in hospital Coding Level of Care Code 55195 Diagnoses Acute cystitis N30.00 Pyelonephritis N12 Chronic pancreatitis K86.1 Gallstone K80.20 Alcoholism F10.20 Hyponatremia E87.1 CKD (chronic kidney disease) N18.9 Time Spent (min) 70
[2025-04-29 19:11] LABS: Iron 97 ug/dL (37-145); Total Iron Binding Capacity 180 mcg/dl; Unsaturated Iron Binding 83 ug/dL (112-347)
[2025-04-29] MEDS: lidocaine 2% viscous 15 ML, aluminum-mag hydrox-simethicon 30 ML, sucralfate oral liq 1 GM PO (21:05)
[2025-04-29] MEDS: pantoprazole 40 mg SDV IVP (21:10)
[2025-04-29] MEDS: sodium chlor 0.9% + KCl 20 mEq 20 MEQ/1,000 ML BAG 150 MEQ IV (21:10)
[2025-04-29] MEDS: efferdent effervescent 1 EACH DENTAL (22:02)
[2025-04-30] VITALS: BP 115/68; PULSE 74; RESP 16; TEMP 36.8; O2SAT 97
[2025-04-30] MEDS: sodium chlor 0.9% + KCl 20 mEq 20 MEQ/1,000 ML BAG 150 MEQ IV (03:55)
[2025-04-30 04:00] VITALS: BP 107/55; PULSE 79; RESP 16; TEMP 37.3; O2SAT 95
[2025-04-30 04:29] LABS: Hematocrit 21.7 % (36-47); Hemoglobin 7.30 g/dL (11.27-16.99); Mean Corpuscular HGB Conc 33.6 g/dL (30-55); Mean Corpuscular Hemoglobin 37.2 pg (27-33); Mean Corpuscular Volume 110.7 fl (85-98); Nucleated Red Blood Cells % 0 %; Platelet Count 146 10^3/cmm (157-399); Red Blood Count 1.96 10^6/uL (3.85-5.65); White Blood Count 6.88 10^3/uL (3.29-11.43)
[2025-04-30 04:46] LABS: Alanine Aminotransferase 16 U/L (0-33); Albumin Level 3.5 g/dL (3.5-5.2); Alkaline Phosphatase 53 U/L (35-105); Anion Gap 21.8 (5-19); Aspartate Amino Transferase 25 U/L (0-32); Blood Urea Nitrogen 23 mg/dL (8-23); Calcium 8.8 mg/dL (8.5-10.5); Carbon Dioxide 20 mmol/L (22-29); Chloride 98 mmol/L (98-107); Creatinine Clr Calc Pharmacy 37.2143; Globulin 2.6 g/dL (1.3-4.6); Glucose 111 mg/dL (65-115); Osmolality Calculated 286 mOsm/kg (285-295); Potassium 3.8 mmol/L (3.5-5.1); Sodium 136 mmol/L (136-145); Total Protein 6.1 g/dL (6.6-8.7)
[2025-04-30 04:49] LABS: Magnesium 0.9 mg/dL (1.7-2.3)
[2025-04-30 04:55] LABS: Estmated Average Glucose 108; Hemoglobin A1C 5.4 % (4.0-6.0)
[2025-04-30] MEDS: magnesium sulfate premix 2 GM/50 ML PIGGYBACK IV ×2 (06:01→12:47)
[2025-04-30 06:10] VITALS: PULSE 75
--- NOTE | 2025-04-30 08:00 | NM_ITS ---
WS: [id number] NUCLEAR MEDICINE HIDA SCAN CLINICAL INFORMATION: n/v/d pancreatitis and non obstructing gallstones TECHNIQUE: Following intravenous administration of 8.2 mCi of technetium 99m mebrofenin, images of the abdomen were obtained over the course of 60 minutes. Next, gallbladder ejection fraction was determined by obtaining preprandial and one-hour postprandial images of the gallbladder following oral ingestion of Ensure. FINDINGS: Normal hepatic uptake at 5 minutes. Normal hepatic excretion. Gallbladder is visualized by 15 minutes. No evidence of acute cholecystitis. Common bile duct and small bowel activity is visualized. Gallbladder ejection fraction 92% within normal limits. NM/NM hepatobiliary w phar* [id number] IMPRESSION: Normal HIDA scan
[2025-04-30] MEDS: pantoprazole 40 mg SDV IVP ×2 (10:16→18:07)
[2025-04-30] MEDS: cefTRIAXone 1,000 mg SDV 1000 MG IVP (10:16)
[2025-04-30 10:59] VITALS: BP 93/52; PULSE 95; RESP 17; TEMP 37.2; O2SAT 98
--- NOTE | 2025-04-30 12:36 | P.PN_ITS ---
Vitals/I&O/Wt Last Vital Signs Temp 99.0 F 04/30/25 10:59 Pulse 95 04/30/25 10:59 Resp 17 04/30/25 10:59 BP 93/52 04/30/25 10:59 Pulse Ox 98 04/30/25 10:59 O2 Del Method Room Air 04/30/25 10:59 04/29/25 04/30/25 04/30/25 22:59 06:59 14:59 Intake Total / 1435.833 / 3522.883 19.167 / .167 Output Total 200 / 200 Balance / 1235.833 / 3322.883 19.167 / .167 Weight last 48 hrs Weight 57.153 kg Weight 61.235 kg Weight 61.235 kg Physical Exam 2 Narrative: General well-developed malaised thin female in no acute cardiopulmonary distress eating clear liquid food CV regular rate and rhythm Lungs clear to auscultation bilaterally Abdomen positive bowel sounds no tenderness or mass no rebound tenderness tenderness Calves no tenderness cords pretibial edema Mentation she is alert and oriented x 3 Mood and affect are normal Skin is warm and dry not jaundiced Back no flank pain Data 04/30/25 04:25 04/30/25 04:25 Micro: Microbiology 04/29/25 14:46 Urine Culture - Preliminary Urine,Clean Catch Gram Negative Rods 04/29/25 12:48 Blood Culture - Preliminary Blood SPECIMEN COLLECTED 04/29/25 12:45 Blood Culture - Preliminary Blood SPECIMEN COLLECTED A&P Assessment and plan 1. Acute cystitis: Patient with urine loaded with bacteria and white cells but not much blood. Will treat with Rocephin already started in ER. 2. Pyelonephritis: Patient with some right sided discomfort and pyelonephritis by CT scan. No flank pain today 3. Chronic pancreatitis: Chronic pancreatitis by CT scan and history. Sounds like she has had possibly also a sick chronically sick gallbladder. HIDA scan was negative including uptake in secretion. Patient denies abdominal pain with the test Start pancrelipase with meals and a low-fat diet 4. Gallstone: See above. At this point this appears to be not an acute problem 5. Alcoholism: Patient is counseled that she needs to quit drinking alcohol. She denies history of withdrawal 6. Hyponatremia: Saline repeat labs in the morning 7. CKD (chronic kidney disease): Saline repeat labs in the morning 8. Chronic diarrhea: The patient is on metformin but her A1c is 5.4 and metformin causes diarrhea so I am going to stop it. Additionally she has CKD so metformin is a poor choice. She is also on sitagliptin which will be held for now 9. Anemia: Iron studies actually not low. She does not have active visualized bleeding. Hematocrit dropped expected amount with hydration overnight from already low 24% to 21.7% and prior to that our last known hematocrit was 40% in 03/23/2020. Awaiting Hemoccult and additional CBC in the morning. Anemia of chronic disease or renal failure is a possibility but with GFR 38 and not on dialysis that seems unlikely Patient will need to have a EGD and colonoscopy. If she has active bleeding will become urgent PDMP PDMP Reviewed: Not Reviewed Attestations 2 Medical Necessity Statement*: Patient will remain in the hospital least 1 additional night for differential on anemia and see her tolerance of pancrelipase low-fat diet and stopping offending medications for diarrhea Coding Level of Care Code 92679 Diagnoses Acute cystitis N30.00 Pyelonephritis N12 Chronic pancreatitis K86.1 Gallstone K80.20 Alcoholism F10.20 Hyponatremia E87.1 CKD (chronic kidney disease) N18.9 Chronic diarrhea K52.9 Anemia D64.9 Time Spent (min) 40
[2025-04-30] MEDS: lipase-protease-amylase Capsule 1 EACH PO ×2 (12:45→18:45)
[2025-04-30 12:46] LABS: Lipase 67 U/L (13-60)
[2025-04-30 12:59] LABS: Uric Acid 8.0 mg/dL (2.4-5.7)
[2025-04-30 13:20] LABS: Hemoglobin 6.70 g/dL (11.27-16.99); Mean Corpuscular HGB Conc 34.4 g/dL (30-55); Mean Corpuscular Hemoglobin 37.0 pg (27-33); Mean Corpuscular Volume 107.7 fl (85-98); Nucleated Red Blood Cells % 0 %; Platelet Count 141 10^3/cmm (157-399); Red Blood Count 1.81 10^6/uL (3.85-5.65); White Blood Count 6.30 10^3/uL (3.29-11.43)
[2025-04-30 13:22] LABS: Hematocrit 19.5 % (36-47)
[2025-04-30] MEDS: potassium phosphate (mMol PO4) 30 MMOL in sodium chloride 0.9% (100 ml) 100 ML 25 MMOL IV (14:09)
[2025-04-30 15:56] VITALS: BP 114/57; PULSE 84; RESP 17; TEMP 36.5; O2SAT 99
[2025-04-30 20:00] VITALS: BP 126/66; PULSE 95; RESP 16; TEMP 36.6; O2SAT 95
[2025-04-30 23:11] LABS: C.Diff PCR (Lab) NEGATIVE (Negative)
[2025-05-01] VITALS (11 sets, daily range): BP systolic 126–154; BP diastolic 65–75; PULSE 71–85; RESP 16–17; TEMP 36.6–37.1; O2SAT 94–98
[2025-05-01 04:30] LABS: Hemoglobin 6.80 g/dL (11.27-16.99); Mean Corpuscular HGB Conc 33.8 g/dL (30-55); Mean Corpuscular Hemoglobin 37.4 pg (27-33); Mean Corpuscular Volume 110.4 fl (85-98); Nucleated Red Blood Cells % 0 %; Platelet Count 157 10^3/cmm (157-399); Red Blood Count 1.82 10^6/uL (3.85-5.65); White Blood Count 5.92 10^3/uL (3.29-11.43)
[2025-05-01 04:40] LABS: Hematocrit 20.1 % (36-47)
[2025-05-01 04:49] LABS: Alanine Aminotransferase 15 U/L (0-33); Albumin Level 3.5 g/dL (3.5-5.2); Alkaline Phosphatase 51 U/L (35-105); Anion Gap 18.7 (5-19); Aspartate Amino Transferase 20 U/L (0-32); Blood Urea Nitrogen 16 mg/dL (8-23); Calcium 9.5 mg/dL (8.5-10.5); Carbon Dioxide 23 mmol/L (22-29); Chloride 101 mmol/L (98-107); Creatinine Clr Calc Pharmacy 36.1541; Globulin 2.9 g/dL (1.3-4.6); Glucose 126 mg/dL (65-115); Osmolality Calculated 291 mOsm/kg (285-295); Potassium 3.7 mmol/L (3.5-5.1); Sodium 139 mmol/L (136-145); Total Protein 6.4 g/dL (6.6-8.7)
[2025-05-01 04:51] LABS: Lipase 84 U/L (13-60); Magnesium 1.9 mg/dL (1.7-2.3)
[2025-05-01 09:37] LABS: Vitamin B12 995 pg/mL (232-1245)
[2025-05-01] MEDS: cholestyramine powder 4 gm Pkt PO (10:06)
[2025-05-01] MEDS: cefTRIAXone 1,000 mg SDV 1000 MG IVP (10:08)
[2025-05-01] MEDS: pantoprazole 40 mg SDV IVP ×2 (10:10→17:16)
[2025-05-01] MEDS: lipase-protease-amylase Capsule 1 EACH PO (10:10)
--- NOTE | 2025-05-01 13:00 | PC.OT ---
OT treatment attempted at 12:20 and patient declined
[2025-05-01] MEDS: lipase-protease-amylase Capsule 2 EACH PO (17:16)
[2025-05-01] MEDS: neomycin-poly-bacitracin oint 28 gm 1 APPLIC TOPICAL (17:17)
--- NOTE | 2025-05-01 19:21 | P.PN_ITS ---
Subjective 2 Subjective: 65-year-old female admitted wi th abdominal pain and diarrhea. Looks like she has chronic pancreatitis. She also has chronic kidney disease and was on metformin. Her lactic acid was normal at 1.8. She has megaloblastic anemia and her iron studies are normal. Notably her folate is 3.8 which is low but her B12 is 995. Patient does report drinking 2 bottles of wine weekly but recently has not been able to because she states she does not recover well and feels poorly. She has been drinking less maybe a bottle of wine a week or and sometimes not at all for couple week I saw her earlier in the day and she and her sister who is an surgical instrument mechanicsurgical instrument mechanic named Seble discussed options and elected to proceed with blood transfusion. I ordered 1 unit. Her son Seamus who goes by James was also present. Patient states she is eat more food in the last 2 days than she usually eats in a week. She has had no more nausea with great relief taking Zofran. She has not had any diarrhea since this morning Vitals/I&O/Wt Last Vital Signs Temp 98.5 F 05/01/25 18:00 Pulse 84 05/01/25 18:00 Resp 17 05/01/25 18:00 BP 147/72 05/01/25 18:00 Pulse Ox 97 05/01/25 17:00 O2 Del Method Room Air 05/01/25 16:00 05/01/25 05/01/25 05/01/25 06:59 14:59 22:59 Intake Total 1050 / 2279.167 720 / 720 240 / 960 Output Total 400 / 600 Balance 650 / 1679.167 720 / 720 240 / 960 Weight last 48 hrs Weight 56.699 kg Weight 57.153 kg Weight 61.235 kg Physical Exam 2 Narrative: General well-developed malaised thin female in no acute cardiopulmonary distress CV regular rate and rhythm Lungs clear to auscultation bilaterally Abdomen positive bowel sounds no tenderness or mass no rebound tenderness tenderness Calves no tenderness cords pretibial edema Mentation she is alert and oriented x 3 Mood and affect are normal Skin is warm and dry not jaundiced Back no flank pain Data 05/01/25 04:22 05/01/25 04:22 Micro: Microbiology 04/29/25 14:46 Urine Culture - Preliminary Urine,Clean Catch Gram Negative Rods Gram Negative Rods#2 04/30/25 21:15 Occult Blood (FIT) - Final Stool Routine Collection A&P Assessment and plan 1. Acute cystitis: Continue Rocephin anticipate a course with oral antibiotics on discharge 2. Pyelonephritis: Patient with some right sided discomfort and pyelonephritis by CT scan. No flank pain today 3. Chronic pancreatitis: Chronic pancreatitis by CT scan and history. Sounded like she had possibly also a sick chronically sick gallbladder. HIDA scan was negative including uptake in secretion. Patient denies abdominal pain with the test Start pancrelipase with meals and a low-fat diet 4. Gallstone: See above. At this point this appears to be not an acute problem. HIDA scan was normal 5. Alcoholism: Patient is counseled that she needs to quit drinking alcohol. No signs of withdrawal 6. Hyponatremia: Resolved 7. CKD (chronic kidney disease): Stable patient needs to stay off metformin forever 8. Chronic diarrhea: The patient is on metformin but her A1c is 5.4 and metformin causes diarrhea so I am going to stop it. Additionally she has CKD so metformin is a poor choice. She is also on sitagliptin which will be held for now 9. Anemia: She has a megaloblastic anemia with a low folate which will be replaced. Iron studies were not low. I think poor p.o. intake with diarrhea from metformin and chronic pancreatitis were contributing to her megaloblastic anemia PDMP PDMP Reviewed: Not Reviewed Attestations 2 Medical Necessity Statement*: Patient remained in the hospital for 1 more midnight for blood transfusion anticipate discharge tomorrow Coding Level of Care Code 05474 Diagnoses Acute cystitis N30.00 Pyelonephritis N12 Chronic pancreatitis K86.1 Gallstone K80.20 Alcoholism F10.20 Hyponatremia E87.1 CKD (chronic kidney disease) N18.9 Chronic diarrhea K52.9 Anemia D64.9 Time Spent (min) 35
[2025-05-01 20:36] LABS: Hematocrit 25.3 % (36-47); Hemoglobin 8.40 g/dL (11.27-16.99)
[2025-05-02] VITALS: BP 147/78; PULSE 90; RESP 16; TEMP 36.9; O2SAT 94
[2025-05-02 04:00] VITALS: BP 139/68; PULSE 88; RESP 16; TEMP 36.8; O2SAT 95
[2025-05-02 04:59] LABS: Hematocrit 24.9 % (36-47); Hemoglobin 8.30 g/dL (11.27-16.99); Mean Corpuscular HGB Conc 33.3 g/dL (30-55); Mean Corpuscular Hemoglobin 33.9 pg (27-33); Mean Corpuscular Volume 101.6 fl (85-98); Nucleated Red Blood Cells % 0 %; Platelet Count 145 10^3/cmm (157-399); Red Blood Count 2.45 10^6/uL (3.85-5.65); White Blood Count 4.65 10^3/uL (3.29-11.43)
[2025-05-02] MEDS: sodium chlor 0.9% + KCl 20 mEq 20 MEQ/1,000 ML BAG 150 MEQ IV ×2 (06:37)
[2025-05-02 07:43] VITALS: BP 163/79; PULSE 78; RESP 17; TEMP 36.4; O2SAT 97
[2025-05-02] MEDS: cholestyramine powder 4 gm Pkt PO (09:17)
[2025-05-02] MEDS: cefTRIAXone 1,000 mg SDV 1000 MG IVP (09:18)
[2025-05-02] MEDS: lipase-protease-amylase Capsule 2 EACH PO ×2 (09:18→12:36)
[2025-05-02] MEDS: pantoprazole 40 mg SDV IVP (09:22)
--- NOTE | 2025-05-02 10:58 | P.DS_ITS ---
Discharge Providers Date of Admission: 04/29/25 16:36 Date of Discharge: May 02, 2025 Attending Provider at Admission: David Moon MD Attending Provider at Discharge: David Moon MD Diagnoses at Discharge Discharge Diagnosis 1. Acute cystitis: Details from hospital stay: Finished 3 days of Rocephin and will continue with 7 more days of cefuroxime 500 mg twice daily. I think she contracted acute cystitis developing pyelonephritis due to chronic diarrhea 2. Pyelonephritis: Details from hospital stay: As above treatment for pyelonephritis right kidney 3. Chronic pancreatitis: Details from hospital stay: Patient has pancreatic calcifications. HIDA scan was negative. She did have some improvement with pancrelipase. Follow-up outpatient with primary care physician and consider referral to GI 4. Gallstone: Details from hospital stay: HIDA scan negative no intervention at this time 5. Alcoholism: Details from hospital stay: Patient is counseled to stop alcohol forever due to chronic pancreatitis and chronic diarrhea with folic acid deficiency 6. Hyponatremia: Details from hospital stay: Resolved with hydration 7. CKD (chronic kidney disease): Details from hospital stay: Improved potassium is within normal and creatinine stable at 1.4 8. Chronic diarrhea: Details from hospital stay: Improved follow-up outpatient for EGD and colonoscopy. Phosphorus will be replaced for short duration while she gets back to a regular diet 9. Anemia: Details from hospital stay: Iron studies were normal folic acid 3.8 Reason for Visit Reason for Visit: weakness, multiple falls, dizzy, trouble hearing Brief History: Audrey Cruz is a 65 year old female history of diabetes and chronic diarrhea. She comes in with recurrent falls and weakness. She states this has been going on for 2 to 3 weeks but diarrhea for a month 4-5 times a day. She does not see blood in the stool. Stool is baby yellow she has vomited but no blood . Patient reports a history of pancreatitis and gallstones around 2019 she states she was given morphine and she passed a gallstone. They considered removal of the gallbladder but surgeon declined. She had a CT scan in 2019 showed necrotizing pancreatitis. Looks like she was sent to Dr. Glass at [facility] Patient has a history of atrophied left kidney she states this started in her 20s and she was told that maybe the kidney lost its blood flow. There was marked asymmetric smaller kidney on the left side in 2019 and right kidney was unremarkable. Today's CT scan shows severe atrophy of the left kidney and compensatory hypertrophy of the right kidney there is ovoid soft tissue mass in the left retroperitoneal area with calcification suggesting fat necrosis and sequela from past acute pancreatitis. She has extensive atherosclerotic vascular disease in the aorta and major branches as well as the major arteries in the pelvis. There was a small amount of urinary bladder air and right kidney perinephric stranding consistent with pyelonephritis Hospital Course Hospital Course Patient had rapid resolution of her nausea with IV fluids and Zofran. She had a HIDA scan looking for chronic pancreatitis which was negative on uptake and excretion. She has a gallstone which is not obstructing the gallbladder. 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 She is an alcoholic but has been drinking less recently. Patient's diarrhea has improved but not resolved. Notably she is eating much more than she was eating at home. Patient's UTI is being treated for pyelonephritis based on CT scan and urine culture for total of 10 days combined Rocephin and cefuroxime Patient was companied by her her son Seamus as well as her sister Seble who is a RN that worked in surgery department. I discussed the need for treatment of folic acid deficiency, alcohol discontinuance, pancreatic enzymes, discontinuance of metformin and follow-up EGD and colonoscopy. We discussed the option of following with GI which would provide more medical answers or going to general surgery locally which would certainly accommodate the need for EGD and colonoscopy primarily and they elected for the latter Patient came in dehydrated with hematocrit 24.1 markedly decreased from 40.3 on 03/23/2020. Her iron test was normal and she did not have active bleeding. With hydration her hematocrit was 19.5 and patient felt symptomatically weak and shaky with physical therapy. She agreed to 1 unit transfusion and received that yesterday with hematocrit 25.3. Physical Exam Narrative: General well-developed well-nourished female in no acute cardiopulmonary stress CV regular rate and rhythm Lungs clear to auscultation bilaterally Abdomen positive bowel sounds soft nontender Calves no tenderness or pretibial edema Mood and affect normal Discharge Data Studies Completed and Pending Completed Studies During Hospitalization Category Date Time Status CT abdomen pelvis wo con [id number] Stat Cat Scan 04/29/25 12:[address] head wo con* [id number] Stat Cat Scan 04/29/25 12:37 Completed XR chest 1V portable [id number] Stat Exams 04/29/25 12:07 Completed NM hepatobiliary w phar* [id number] Routine Nuc Med 04/30/25 08:00 Completed Pending at discharge Category Date Time Status Blood Culture Stat Lab 04/29/25 12:48 Results Helicobacter Pylori AG Stool Routine Lab 04/30/25 21:25 Received Urine Culture Stat Lab 04/29/25 14:46 Results Radiology Impressions Chest X-Ray 04/29/25 12:07 IMPRESSION: 1. No acute cardiopulmonary finding. Abdomen/Pelvis CT 04/29/25 12:37 IMPRESSION: 1. Hepatic steatosis. Single small stone in the gallbladder but no sign of acute cholecystitis. 2. Perinephric stranding about the RIGHT kidney which might be seen with pyelonephritis. 3. Severe atrophy of the LEFT kidney with compensatory hypertrophy of the RIGHT kidney. 4. Ovoid soft tissue mass in the LEFT retroperitoneal area with calcifications suggesting fat necrosis and sequela from previous acute pancreatitis 5. Extensive atherosclerotic vascular disease of the aorta and major branches as well as the major arteries in the pelvis. 5. Small amount of air in the urinary bladder and in the cervix. Etiology uncertain. Head CT 04/29/25 12:37 IMPRESSION: 1. No sequela of acute trauma is identified. 2. Mild intracranial atherosclerotic changes. 3. Mild inflammatory changes/retained secretions, right sphenoid sinus. Hepatobiliary Scan Nuclear Medicine 04/30/25 08:00 IMPRESSION: Normal HIDA scan Laboratory Results WBC 4.65 10^3/uL (3.29-11.43) 05/02/25 04:40 RBC 2.45 10^6/uL (3.85-5.65) L 05/02/25 04:40 Hgb 8.30 g/dL (11.27-16.99) L 05/02/25 04:40 Hct 24.9 % (36-47) L 05/02/25 04:40 MCV 101.6 fl (85-98) H 05/02/25 04:40 MCH 33.9 pg (27-33) H 05/02/25 04:40 MCHC 33.3 g/dL (30-55) 05/02/25 04:40 RDW 21.0 % (12.1-15.1) H 05/02/25 04:40 Plt Count 145 10^3/cmm (157-399) L 05/02/25 04:40 MPV 8.6 fL (7.4-10.4) 05/02/25 04:40 Neut % (Auto) 66.7 % 05/02/25 04:40 Lymph % (Auto) 20.2 % 05/02/25 04:40 Gove % (Auto) 10.8 % 05/02/25 04:40 Eos % (Auto) 1.3 % 05/02/25 04:40 Baso % (Auto) 0.4 % 05/02/25 04:40 Neut # (Auto) 3.10 10^3/uL (1.8-7.7) 05/02/25 04:40 Lymph # (Auto) 0.9 10^3/uL (0.8-4.8) 05/02/25 04:40 Gove # (Auto) 0.5 10^3/uL (0.2-0.9) 05/02/25 04:40 Eos # (Auto) 0.1 10^3/uL (0.0-0.8) 05/02/25 04:40 Baso # (Auto) 0.0 10^3/uL (0.0-0.1) 05/02/25 04:40 Nucleated RBC % (auto) 0 % 05/02/25 04:40 Nucleated RBCs # 0.0 /100WBC 05/02/25 04:40 PT 12.90 SECONDS (12.1-14.9) 04/29/25 12:45 INR 0.91 (0.8-1.2) 04/29/25 12:45 Sodium 139 mmol/L (136-145) 05/01/25 04:22 Potassium 3.7 mmol/L (3.5-5.1) 05/01/25 04:22 Chloride 101 mmol/L (98-107) 05/01/25 04:22 Carbon Dioxide 23 mmol/L (22-29) 05/01/25 04:22 Anion Gap 18.7 (5-19) 05/01/25 04:22 BUN 16 mg/dL (8-23) 05/01/25 04:22 Creatinine 1.4 mg/dL (0.5-0.9) H 05/01/25 04:22 GFR Calculation 38.0 mL/min (90-130) L 05/01/25 04:22 Glucose 126 mg/dL (65-115) H 05/01/25 04:22 POC Glucose 167 mg/dL (70-110) H 04/29/25 22:02 Estimat Average Glucose 108 04/30/25 04:25 Hemoglobin A1c 5.4 % (4.0-6.0) 04/30/25 04:25 Calculated Osmolality 291 mOsm/kg (285-295) 05/01/25 04:22 Lactic Acid 1.7 mmol/L (0.5-2.2) 04/29/25 12:45 Uric Acid 8.0 mg/dL (2.4-5.7) H 04/30/25 04:25 Calcium 9.5 mg/dL (8.5-10.5) 05/01/25 04:22 Phosphorus 3.2 mg/dL (2.5-4.5) D 05/01/25 04:22 Magnesium 1.9 mg/dL (1.7-2.3) 05/01/25 04:22 Iron 97 ug/dL (37-145) 04/29/25 12:45 TIBC 180 mcg/dl 04/29/25 12:45 % Saturation 53.8 % (20-50) H 04/29/25 12:45 Unsat Iron Binding 83 ug/dL (112-347) L 04/29/25 12:45 Total Bilirubin 0.3 mg/dL (0.15-1.2) 05/01/25 04:22 AST 20 U/L (0-32) 05/01/25 04:22 ALT 15 U/L (0-33) 05/01/25 04:22 Alkaline Phosphatase 51 U/L (35-105) 05/01/25 04:22 Total Protein 6.4 g/dL (6.6-8.7) L 05/01/25 04:22 Albumin 3.5 g/dL (3.5-5.2) 05/01/25 04:22 Globulin 2.9 g/dL (1.3-4.6) 05/01/25 04:22 Lipase 84 U/L (13-60) H 05/01/25 04:22 Vitamin B12 995 pg/mL (232-1245) 05/01/25 04:22 Folate 3.8 ng/mL (4.8-37.3) L 05/01/25 04:22 TSH 0.86 uIU/mL (0.27-4.20) 04/29/25 12:45 Urine Color Yellow (Yellow) 04/29/25 14:46 Urine Appearance Turbid (CLEAR) A 04/29/25 14:46 Urine pH 7.0 (5-7) 04/29/25 14:46 Ur Specific Rozel 1.005 (1.005-1.030) 04/29/25 14:46 Urine Protein 1+ (Negative) A 04/29/25 14:46 Urine Glucose (UA) Negative (Normal) 04/29/25 14:46 Urine Ketones Trace (Negative) 04/29/25 14:46 Urine Blood 2+ (Negative) A 04/29/25 14:46 Urine Nitrate Negative (Negative) 04/29/25 14:46 Urine Bilirubin Negative (Negative) 04/29/25 14:46 Urine Urobilinogen 1.0 mg/dL (Negative) 04/29/25 14:46 Ur Leukocyte Esterase 3+ (Negative) A 04/29/25 14:46 Urine RBC 0-2 /hpf (0-2) 04/29/25 14:46 Urine WBC 51-100 /hpf (0-5) H 04/29/25 14:46 Ur Squamous Epith Cells 0-5 /hpf (0-5) 04/29/25 14:46 Amorphous Sediment Not Reportable 04/29/25 14:46 Urine Bacteria Exceeds /hpf (NONE) 04/29/25 14:46 Hyaline Casts 24.82 /lpf 04/29/25 14:46 C. difficile (PCR) Negative (Negative) 04/30/25 21:25 Blood Type A Positive 04/30/25 13:12 Rho(D) Type Rh positive 04/30/25 13:12 Antibody Screen Negative 04/30/25 13:12 Crossmatch See Detail 04/30/25 13:[address] Abd/Pel: Radiologist's impression: IMPRESSION: 1. Hepatic steatosis. Single small stone in the gallbladder but no sign of acute cholecystitis. 2. Perinephric stranding about the RIGHT kidney which might be seen with pyelonephritis. 3. Severe atrophy of the LEFT kidney with compensatory hypertrophy of the RIGHT kidney. 4. Ovoid soft tissue mass in the LEFT retroperitoneal area with calcifications suggesting fat necrosis and sequela from previous acute pancreatitis 5. Extensive atherosclerotic vascular disease of the aorta and major branches as well as the major arteries in the pelvis. 5. Small amount of air in the urinary bladder and in the cervix. Etiology uncertain. Other Imaging: Radiologist's impression: HIDA FINDINGS: Normal hepatic uptake at 5 minutes. Normal hepatic excretion. Gallbladder is visualized by 15 minutes. No evidence of acute cholecystitis. Common bile duct and small bowel activity is visualized. Gallbladder ejection fraction 92% within normal limits. Vitals Last Vital Signs Temp 97.5 F L 05/02/25 07:43 Pulse 78 05/02/25 07:43 Resp 17 05/02/25 07:43 BP 163/79 05/02/25 07:43 Pulse Ox 97 05/02/25 07:43 O2 Del Method Room Air 05/02/25 04:00 Discharge Plan Discharge Patient Disposition: Home Condition: Stable Prescriptions: New lidocaine 5 % Adhesive Patch,Medicated 1 patch transdermal O12O12 Qty: 30 0RF folic acid 1 mg Tablet 1 mg PO BID Qty: 90 0RF cholestyramine (with sugar) 4 gram Powder In Packet 1 ea PO BID Qty: 60 0RF Zenpep 5,000-17,000- 24,000 unit Capsule,Delayed Release(Dr/Ec) 2 cap PO TIDWM Qty: 180 0RF Phospha 250 Neutral 250 mg Tablet 1 tab PO BID Qty: 14 0RF Rx Instructions: stop after empty this bottle cefuroxime axetil 500 mg tablet 500 mg PO BID 7 Days Qty: 14 0RF VSL#3 112.5 billion cell capsule 1 cap PO DAILY Qty: 30 0RF Continued cetirizine [Zyrtec] 10 mg Tablet 10 mg PO DAILY atorvastatin 10 mg Tablet 10 mg PO QPM biotin 5 mg Capsule 5 mg PO DAILY amlodipine 5 mg Tablet 5 mg PO BID allopurinol 100 mg Tablet 100 mg PO DAILY metoprolol succinate 25 mg Tablet Extended Release 24 Hr 25 mg PO DAILY loratadine 10 mg Capsule 10 mg PO DAILY PRN (Reason: Allergy Symptoms) ondansetron 8 mg Tablet,Disintegrating 8 mg PO Q8H PRN (Reason: Nausea And Vomiting) Qty: 20 0RF Discontinued metformin 500 mg Tablet 500 mg PO BID lorazepam 0.5 mg Tablet See Rx Instructions .ROUTE .COMPLEX PRN (Reason: Anxiety) Rx Instructions: take 0.25-0.5mg sitagliptin 50 mg Tablet 50 mg PO DAILY Discharge Order = DC NOW: Discharge Order (Routine); Ordered 05/02/25 Ordered By: David Moon Referrals: Bonnie Smith MD [Physician, General Surgery] - 7-10 days Referral Note: We have notified your physician's clinic of the need for a follow-up appointment to be scheduled. If you have not heard from them within the next 2 business days, please call them directly. Problems: Chronic diarrhea; Anemia Discharge Diet: Advance as tolerated and Diabetic Discharge Activity: Increase activity as tolerated Patient Instructions: Opioid Safety, Patient Portal & Duran Instructions Activity Restrictions/Additional Instructions: Stop metformin forever Check blood sugars and follow-up with your primary care physician for Start taking folic acid twice a day for a month and recheck folic acid level along with your CBC Stop alcohol forever Take pancreatic enzymes 2 tablets prior to each meal. If no diarrhea can decrease to 1 pancreatic enzyme tablet prior to each meal Follow-up with general surgery for EGD and colonoscopy due to chronic nausea and diarrhea Return if diarrhea is severe and you are getting dehydrated Discharge Attestations Time Spent in Discharge Care*: greater than 30 min Time Spent in Smoking Cessation: Non-smoker Quality Metrics Clinical Quality Measures [ No reported AMI, CVA or VTE this stay] Coding Level of Care Code Acute Code for Chg Fwd Diagnoses Acute cystitis N30.00 Pyelonephritis N12 Chronic pancreatitis K86.1 Gallstone K80.20 Alcoholism F10.20 Hyponatremia E87.1 CKD (chronic kidney disease) N18.9 Chronic diarrhea K52.9 Anemia D64.9 Time Spent (min) 45
--- NOTE | 2025-05-02 11:28 | PC.SOCIAL ---
IMM updated IMM dated and initialed, copy given to patient and copy placed in chart.
[2025-05-02 14:22] VITALS: BP 163/79; PULSE 78; RESP 17; TEMP 36.4; O2SAT 97
== END 2025-05-02 13:50 | disposition home health service (06) | DRG 690 ==
LOC: ER 15:51 → ER IP 16:37 → MEDSURG 18:04
PROVIDERS: Admitting Provider Internal Medicine; Emergency Provider Emergency Medicine; Visit Provider Internal Medicine
DX: N12 Tubulo-interstitial nephritis, not specified as acute or chronic (principal); E87.1 Hypo-osmolality and hyponatremia; K86.0 Alcohol-induced chronic pancreatitis; E11.22 Type 2 diabetes mellitus with diabetic chronic kidney disease; N18.9 Chronic kidney disease, unspecified; K52.9 Noninfective gastroenteritis and colitis, unspecified; D63.1 Anemia in chronic kidney disease; K80.20 Calculus of gallbladder without cholecystitis without obstruction; D64.89 Other specified anemias; E53.8 Deficiency of other specified B group vitamins; F10.20 Alcohol dependence, uncomplicated; Z79.84 Long term (current) use of oral hypoglycemic drugs; I95.9 Hypotension, unspecified; E86.0 Dehydration
CPT/HCPCS: 36415; 36416; 36430; 70450; 71045; 74176; 78227; 80053; 81001; 82274; 82607; 82746; 82962; 83036; 83540; 83550; 83605; 83690; 83735; 84100; 84443; 84550; 85014; 85018; 85025; 85610; 86850; 86900; 86920; 87040; 87077; 87086; 87186; 87338; 87493; 93005; 96374; 96375; 97110; 97116; 97162; 97167; 97530; 99285; A9537; J0696; J2405; J2470; J3475; J3480; J7030; J9999; P9016

== ENCOUNTER → 2025-05-12 08:27 | Outpatient (BNVA) | payer MEDICARE, OTHER, SELFPAY | PROVIDERS: Visit Provider Student in an Organized Health Care Education/Training Program | DX: R19.4 Change in bowel habit (principal); R10.9 Unspecified abdominal pain | CPT/HCPCS: 99204 ==

== ENCOUNTER 2025-07-01 06:50 | Day surgery (SDC) | payer MEDICARE, OTHER, SELFPAY ==
[2025-07-01 07:24] VITALS: BP 149/78; PULSE 85; RESP 18; TEMP 36.3; O2SAT 98; BMI 23.1
--- NOTE | 2025-07-01 07:44 | W.PM.OPSFHP ---
Same Day Surgery H&P Indication for Procedure/HPI DATE OF PROCEDURE: July 01, 2025 CHIEF COMPLAINT/INDICATIONFOR SURGICAL PROCEDURE: abdominal pain changes in bowel habits PREOP DIAGNOSIS: abdominal pain and changes in bowel habits PLANNED PROCEDURE: Operation Date: 07/01/25 07:45 Proposed Procedures p EGD EGD with Biopsy [id number] G0105 R19.4 R10.9 K27.9(Not Applicable) - Phu Harrington MD s Colonoscopy(Not Applicable) - Phu Harrignton MD Medications/Allergies* Home Medications ?Medication ?Instructions ?Recorded ?Confirmed ?Type cetirizine 10 mg tablet (Zyrtec) 10 mg PO DAILY 03/23/20 06/25/25 History amlodipine 5 mg tablet 5 mg PO BID 04/29/25 07/01/25 History atorvastatin 10 mg tablet 10 mg PO QPM 04/29/25 06/25/25 History biotin 5 mg capsule 5 mg PO DAILY 04/29/25 06/25/25 History loratadine 10 mg capsule 10 mg PO DAILY PRN Allergy Symptoms 04/29/25 06/25/25 History metoprolol succinate 25 mg 25 mg PO DAILY 04/29/25 06/25/25 History tablet,extended release 24 hr Vitamin D3 1 tab PO DAILY 06/25/25 06/25/25 History lidocaine 5 % topical patch 1 patch transdermal O12O12 PRN Pain 06/25/25 06/25/25 History vitamin F54-fnier acid 1 tab PO DAILY 06/25/25 06/25/25 History Allergies/Adverse Reactions Allergy/AdvReac Type Severity Reaction Status Date / Time Iodinated Contrast Media Allergy Unknown Verified 06/25/25 11:27 Current Medications: Generic Name Dose Route Start Last Admin Trade Name Freq PRN Reason Stop Dose Admin Sodium Chloride 1,000 mls @ 30 mls/hr 07/01/25 07:15 07/01/25 07:31 Sodium Chloride 0.9% IV 07/02/25 07:14 30 mls/hr .Q24H LIT Administration Pertinent History/Comorbid Conditions* Medical History (Updated 05/12/25 @ 09:08 by Phu Harrington MD) Chronic diarrhea CKD (chronic kidney disease) Alcoholism Gallstone Social History Smoking and tobacco/nicotine status: never used tobacco/nicotine Quit status (tobacco/nicotine): has quit using Year quit tobacco: 2017 roughly Alcohol intake: current Alcohol type: wine Substance/Drug Use: never Additional social history: Patient wants full code but no prolonged life support as discussed with David Moon MD on 04/29/2025 Pertinent Exam Findings alert, oriented x 3, clear to auscultation bilaterally, regular rate & rhythm and procedure specific exam findings abdomen soft, nt, nd Recommendations Risks and benefits of procedure reviewed and Patient/family agree to proceed Surgery/Procedure today Coding Level of Care Code Acute Code for Chg Fwd
--- NOTE | 2025-07-01 07:52 | ANES.PREANE2 ---
Pre-Anesthetic Assessment Height/Weight: Height 1.63 m Weight 61.235 kg Temp Pulse Resp BP Pulse Ox O2 Del Method 97.4 F L 85 18 149/78 98 Room Air 07/01/25 07:24 07/01/25 07:24 07/01/25 07:24 07/01/25 07:24 07/01/25 07:24 07/01/25 07:24 Preop Diagnosis: abdominal pain and changes in bowel habits Operation Date: 07/01/25 07:45 Proposed Procedures p EGD EGD with Biopsy [id number] G0105 R19.4 R10.9 K27.9(Not Applicable) - Phu Harrington MD s Colonoscopy(Not Applicable) - Phu Harrington MD Familial anesthetic complications: none Was Beta Susanna taken within 24 hours: N/A (metoprolol LD 9.3.25) Was Clonidine taken within 24 hours: N/A Last intake: Intake Last Liquid Date 06/30/25 Last Liquid Time 20:00 Last Solid Date 06/29/25 Last Solid Time 12:00 Social Tobacco (quit 10 yrs ago. ) and No alcohol 1 PPD pack(s) per day Exam alert, oriented x 3, clear to auscultation bilaterally and regular rate & rhythm Airway Submandibular: within normal limits Cervical ROM: within normal limits Mallampati: Class II Dentition: full History/ROS No significant history except as noted Pulmonary Chronic Obstructive Pulmonary Disease and Shortness of Breath CV/HEM Anemia (anemia Apr 2025 - transfusion) denies cp. Sedentary - unable to walk or climb stairs Chronic Renal Failure (reports 1 functioning kidney. diag at at 19. unknown cause) Hepatic chronic pancreatitis GI Peptic Ulcer Disease Metabolic Diabetes Mellitus (hx of treated for DM - gave metformin then took off - told not diabetic ) Musc/skel Lower Back Pain and Weakness (weakness to ext x 4) Neuropsych Neuropathy (x 4 ext) Anesthetic Plan ASA status: 3 Anesthesia: MAC Risk of > 500 ml blood loss (7ml/kg in children): No Medications/Allergies Home Medications ?Medication ?Instructions ?Recorded ?Confirmed ?Last Taken ?Type cetirizine 10 mg tablet (Zyrtec) 10 mg PO DAILY 03/23/20 06/25/25 06/25/25 History amlodipine 5 mg tablet 5 mg PO BID 04/29/25 07/01/25 07/01/25 History 5 mg atorvastatin 10 mg tablet 10 mg PO QPM 04/29/25 06/25/25 06/24/25 History biotin 5 mg capsule 5 mg PO DAILY 04/29/25 06/25/25 06/25/25 History loratadine 10 mg capsule 10 mg PO DAILY PRN Allergy Symptoms 04/29/25 06/25/25 Unknown History metoprolol succinate 25 mg 25 mg PO DAILY 04/29/25 06/25/25 06/25/25 History tablet,extended release 24 hr Lactobac no.2-Bifidobac no.1-S. 1 cap PO DAILY #30 caps 05/02/25 06/25/25 06/25/25 Rx thermo 112.5 billion cell capsule (VSL#3) folic acid 1 mg tablet 1 mg PO BID #90 tabs 05/02/25 06/25/25 06/25/25 Rx ondansetron 8 mg disintegrating 8 mg PO Q8H PRN Nausea And 05/02/25 06/25/25 Unknown Rx tablet Vomiting #20 tabs Vitamin D3 1 tab PO DAILY 06/25/25 06/25/25 Unknown History lidocaine 5 % topical patch 1 patch transdermal O12O12 PRN Pain 06/25/25 06/25/25 Unknown History vitamin B62-jsdpr acid 1 tab PO DAILY 06/25/25 06/25/25 Unknown History Allergies Allergy/AdvReac Type Severity Reaction Status Date / Time Iodinated Contrast Media Allergy Unknown Verified 06/25/25 11:27 Current Medications Generic Name Dose Route Start Last Admin Trade Name Freq PRN Reason Stop Dose Admin Sodium Chloride 1,000 mls @ 30 mls/hr 07/01/25 07:15 07/01/25 07:31 Sodium Chloride 0.9% IV 07/02/25 07:14 30 mls/hr .Q24H LIT Administration PFS Anesthesia Medical History (Updated 05/12/25 @ 09:08 by Phu Harrington MD) Chronic diarrhea CKD (chronic kidney disease) Alcoholism Gallstone Social History Smoking and tobacco/nicotine status: never used tobacco/nicotine Quit status (tobacco/nicotine): has quit using Year quit tobacco: 2017 roughly Alcohol intake: current Alcohol type: wine Substance/Drug Use: never Additional social history: Patient wants full code but no prolonged life support as discussed with David Moon MD on 04/29/2025
[2025-07-01 08:28] VITALS: BP 119/65; PULSE 75; RESP 10; TEMP 36.3; O2SAT 100
--- NOTE | 2025-07-01 08:31 | PC.NURSE ---
cecum time 0817
[2025-07-01 08:45] VITALS: BP 120/80; PULSE 74; RESP 18; O2SAT 100
--- NOTE | 2025-07-01 09:08 | ANE.PACU2 ---
Inpatient post-anesthesia follow up: Airway intact: Yes Vital signs: Temperature 97.3 F Pulse Rate 74 Respiratory Rate 18 Blood Pressure 120/80 Pulse Oximetry 100 Oxygen Delivery Me thod Room Air Oxygen Flow Rate Fraction of Inspir ed Oxygen Hydration adequate: Yes Nausea and vomiting: No Pain level: 1 Mental status: Baseline
== END 2025-07-01 09:08 | disposition home or self-care (01) ==
PROVIDERS: Referring Provider Internal Medicine; Visit Provider Student in an Organized Health Care Education/Training Program
PROC: 0DJ08ZZ Inspection of Upper Intestinal Tract, Via Natural or Artificial Opening Endoscopic (ICD-10-PCS; principal; 2025-07-01 07:45)
PROC: 0DJD8ZZ Inspection of Lower Intestinal Tract, Via Natural or Artificial Opening Endoscopic (ICD-10-PCS; CPT 45378; 2025-07-01 07:45)
DX: R19.4 Change in bowel habit (principal); R10.9 Unspecified abdominal pain; D12.0 Benign neoplasm of cecum; K29.70 Gastritis, unspecified, without bleeding; J44.9 Chronic obstructive pulmonary disease, unspecified; D64.9 Anemia, unspecified; E11.22 Type 2 diabetes mellitus with diabetic chronic kidney disease; N18.9 Chronic kidney disease, unspecified; K27.9 Peptic ulcer, site unspecified, unspecified as acute or chronic, without hemorrhage or perforation; G62.9 Polyneuropathy, unspecified
CPT/HCPCS: 43239; 45380; 45385; 88305; J2704; J7030

== ENCOUNTER → 2025-07-17 09:44 | Outpatient (BNVA) | payer MEDICARE, OTHER, SELFPAY | PROVIDERS: Visit Provider Student in an Organized Health Care Education/Training Program | DX: Z09 Encounter for follow-up examination after completed treatment for conditions other than malignant neoplasm (principal) | CPT/HCPCS: 99213 ==